=== PATIENT | male | born 1990 | race Caucasian/White ===

== ENCOUNTER 2018-06-06 04:41 | Emergency (ER) | payer OTHER ==
--- NOTE | 2018-06-06 05:18 | ED.ADGEN ---
Past History Past Medical History: Alcoholism Adult General Chief Complaint Chief Complaint ( Pt. not seen, left from waiting room. Refusing to register or be seen. 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 ) HPI HPI Patient is a 28 year old male who presents with hx of alcohol use. Refuse to be seen. Review of Systems Review of Systems Refuses information. Family History Family History Not available Physical Exam Physical Exam Constitutional: Well developed, well nourished, intoxicated in appearance. [] Refuses to be seen. EKG EKG [] Radiology/Procedures Radiology/Procedures [] Course & Med Decision Making Course & Med Decision Making Pertinent Labs and Imaging studies reviewed. (See chart for details) [] Final Impression Final Impression 1. Alcohol Abuse- reportedly[] Left with out exam- refuses to be seen. Dragon Disclaimer Dragon Disclaimer This electronic medical record was generated, in whole or in part, using a voice recognition dictation system. DAYTON DESAI MD Jun 06, 2018 05:18
== END 2018-06-06 04:45 | disposition left against medical advice (07) ==
LOC: ER 04:41
DX: F10.129 Alcohol abuse with intoxication, unspecified (principal); Z53.21 Procedure and treatment not carried out due to patient leaving prior to being seen by health care provider; Y90.9 Presence of alcohol in blood, level not specified